=== PATIENT | male | born 1995 | race Caucasian/White ===

== ENCOUNTER → 2017-03-15 | Outpatient (CLI) | payer OTHER ==
[2017-03-16 11:07] LABS: HEPATITIS B CORE AB, TOTAL Negative (Negative); HEPATITIS B SURFACE AG Negative (Negative); HEPATITIS C VIRUS AB <0.1 s/co ratio (0.0-0.9)
== END | disposition home or self-care (01) ==
LOC: SLB 08:52
PROVIDERS: ATTEND Internal Medicine Hospice and Palliative Medicine
DX: Z77.21 Contact with and (suspected) exposure to potentially hazardous body fluids (principal)
CPT/HCPCS: 36415; 86704; 86706; 86803; 87340

== ENCOUNTER 2017-07-12 11:41 | Outpatient (CLI) | payer OTHER ==
[2017-07-13 12:07] LABS: HEPATITIS B CORE AB, TOTAL Negative (Negative); HEPATITIS B SURFACE AG Negative (Negative); HEPATITIS C VIRUS AB <0.1 s/co ratio (0.0-0.9)
== END 2017-07-12 20:03 | disposition home or self-care (01) ==
LOC: SLB 11:41
PROVIDERS: ATTEND Internal Medicine Hospice and Palliative Medicine
DX: Z77.21 Contact with and (suspected) exposure to potentially hazardous body fluids (principal); Z57.8 Occupational exposure to other risk factors
CPT/HCPCS: 36415; 86704; 86706; 86803; 87340

== ENCOUNTER 2017-11-24 12:43 | Emergency (ER) | payer OTHER ==
[~2017-11-24] VITALS: Ht 182.9 cm; Wt 81.6 kg
[2017-11-24 13:00] VITALS: BP_SYST 131
[2017-11-24 15:06] VITALS: BP_SYST 131
[2017-11-26 08:06] LABS: HEPATITIS B CORE AB, TOTAL Negative (Negative); HEPATITIS B SURFACE AG Negative (Negative); HEPATITIS C VIRUS AB <0.1 s/co ratio (0.0-0.9)
== END 2017-11-24 15:06 | disposition home or self-care (01) ==
LOC: SED 12:43
DX: S71.031A Puncture wound without foreign body, right hip, initial encounter (principal); W46.0XXA Contact with hypodermic needle, initial encounter; Y93.89 Activity, other specified; Y92.89 Other specified places as the place of occurrence of the external cause; Y99.8 Other external cause status
CPT/HCPCS: 36415; 86704; 86706; 86803; 87340; 99284

== ENCOUNTER 2017-12-07 12:35 | Outpatient (CLI) | payer OTHER ==
[2017-12-08 12:14] LABS: HEPATITIS B CORE AB, TOTAL Negative (Negative); HEPATITIS C VIRUS AB 0.1 s/co ratio (0.0-0.9)
[2017-12-09 08:06] LABS: HEPATITIS Be AG Negative (Negative)
[2017-12-13 12:08] LABS: HEPATITIS Be AB Negative (Negative)
== END 2017-12-07 19:30 | disposition home or self-care (01) ==
LOC: SLB 12:35
PROVIDERS: ATTEND Internal Medicine Hospice and Palliative Medicine
DX: Z77.21 Contact with and (suspected) exposure to potentially hazardous body fluids (principal); S60.949A Unspecified superficial injury of unspecified finger, initial encounter; W46.0XXA Contact with hypodermic needle, initial encounter; Y93.89 Activity, other specified; Y92.238 Other place in hospital as the place of occurrence of the external cause; Y99.0 Civilian activity done for income or pay
CPT/HCPCS: 36415; 86704; 86707; 86803; 87350

== ENCOUNTER 2018-01-05 10:43 | Outpatient (CLI) | payer OTHER | END 2018-01-05 20:05 | disposition home or self-care (01) | LOC: SLB 10:43 | PROVIDERS: ATTEND Internal Medicine Hospice and Palliative Medicine | DX: Z11.2 Encounter for screening for other bacterial diseases (principal); W46.1XXA Contact with contaminated hypodermic needle, initial encounter; Y93.89 Activity, other specified; Y92.89 Other specified places as the place of occurrence of the external cause; Y99.8 Other external cause status | CPT/HCPCS: 36415; 86704; 86705; 86706; 86707; 86803; 87340; 87350 ==

== ENCOUNTER 2018-04-07 07:33 | Outpatient (CLI) | payer OTHER ==
[2018-04-08 06:06] LABS: HEPATITIS B CORE AB, TOTAL Negative (Negative); HEPATITIS C VIRUS AB <0.1 s/co ratio (0.0-0.9)
[2018-04-11 02:07] LABS: HEPATITIS Be AG Negative (Negative)
== END 2018-04-07 18:14 | disposition home or self-care (01) ==
LOC: SLB 07:33
PROVIDERS: ATTEND Internal Medicine Hospice and Palliative Medicine
DX: S60.949A Unspecified superficial injury of unspecified finger, initial encounter (principal); W46.0XXA Contact with hypodermic needle, initial encounter; Y93.89 Activity, other specified; Y92.238 Other place in hospital as the place of occurrence of the external cause; Y99.0 Civilian activity done for income or pay
CPT/HCPCS: 36415; 86704; 86706; 86803; 87350

== ENCOUNTER 2018-10-03 09:23 | Outpatient (CLI) | payer OTHER ==
[2018-10-04 11:12] LABS: HEPATITIS B CORE AB, TOTAL Negative (Negative); HEPATITIS C VIRUS AB <0.1 s/co ratio (0.0-0.9)
[2018-10-05 08:06] LABS: HEPATITIS Be AG Negative (Negative)
== END 2018-10-04 07:10 | disposition home or self-care (01) ==
LOC: SLB 09:23
PROVIDERS: ATTEND Internal Medicine Hospice and Palliative Medicine
DX: Z77.21 Contact with and (suspected) exposure to potentially hazardous body fluids (principal); S60.949A Unspecified superficial injury of unspecified finger, initial encounter; W46.0XXA Contact with hypodermic needle, initial encounter; Y93.F9 Activity, other caregiving; Y92.239 Unspecified place in hospital as the place of occurrence of the external cause; Y99.0 Civilian activity done for income or pay
CPT/HCPCS: 36415; 86704; 86706; 86803; 87350

== ENCOUNTER 2019-01-17 15:31 | Emergency (ER) | payer OTHER ==
[~2019-01-17] VITALS: Ht 182.9 cm; Wt 98.9 kg
[2019-01-17 16:00] VITALS: BP_SYST 122
--- NOTE | 2019-01-17 16:03 | NUR ---
Patient triaged and placed in waiting room. VSS and patient appears in no acute distress at this time. Accompanied by self, awaiting available bed, and MD notified of need for MSE.
--- NOTE | 2019-01-17 16:40 | NUR ---
Patient to ER bed h1 for evaluation. Side rails up. Report given to Giovani HAMPTON.
--- NOTE | 2019-01-17 16:40 | NUR ---
Pt AAOx4 ambulated into ED c/o redness to R eye s/p accidentally getting a drop of bleach in his eye. Pt rinsed eyes x 10 minutes. Denies pain at the moment. No loss of vision. No other injuries/complaints per pt/noted. Will continue to monitor.
--- NOTE | 2019-01-17 17:00 | NUR ---
ER at bedside examining patient.
--- NOTE | 2019-01-17 17:15 | NUR ---
Scanner would not recognize eye kit, able to scan patient but had to manually enter information for eye kit.
[2019-01-17 17:33] VITALS: BP_SYST 122
--- NOTE | 2019-01-17 17:35 | NUR ---
Patient given written and verbal discharge instructions and verbalizes understanding. ER MD discussed with patient the results and treatment provided. Patient in stable condition. ID arm band removed. Rx of Erythromycin ointment and Polytrim eyedrops given. Patient educated on pain management and to follow up with PMD. Pain Scale 2/10 tolerable for pt . Opportunity for questions provided and answered. Medication side effect fact sheet provided.
== END 2019-01-17 17:35 | disposition home or self-care (01) ==
LOC: SED 15:31
DX: T54.91XA Toxic effect of unspecified corrosive substance, accidental (unintentional), initial encounter (principal); T26.61XA Corrosion of cornea and conjunctival sac, right eye, initial encounter; Y93.89 Activity, other specified; Y92.89 Other specified places as the place of occurrence of the external cause; Y99.8 Other external cause status
CPT/HCPCS: 99283